=== PATIENT | female | born 1965 | race Caucasian/White ===

== ENCOUNTER 2016-10-06 20:44 | Emergency (ER) | payer SELFPAY ==
[~2016-10-06] VITALS: Ht 160 cm; Wt 81.6 kg
[2016-10-06 20:53] VITALS: BP 115/60
[2016-10-06] MEDS ORDERED: NAPROXEN 500 MG TABLET PO STA (22:08)
[2016-10-06] MEDS ORDERED: CYCLOBENZAPRINE 10 MG TABLET. PO ONE (22:15)
[2016-10-06] MEDS ORDERED: HYDROCODONE/APAP 5/325MG TABLET. PO ONE (22:15)
[2016-10-06] MEDS ORDERED: CYCL10TA2 PO (22:51)
[2016-10-06] MEDS ORDERED: NAPR500T8 PO (22:51)
[2016-10-06] MEDS ORDERED: HYDR-971 PO (22:51)
--- NOTE | 2016-10-06 22:51 | PHYS DOC ---
Adult General Chief Complaint Chief Complaint: MECHANICAL FALL HPI HPI Patient is a 51 year old female who presents with mild left sided pain that began after she fell today. Patient denies any loss of consciousness. She states the pain is worse on the left lateral low back and hip. Patient also states she does not need radiology studies. Denies any numbness or tingling to bilateral lower extremities or loss of bowel bladder function. Review of Systems Review of Systems Constitutional: Denies fever or chills [] Eyes: Denies change in visual acuity, redness, or eye pain [] HENT: Denies nasal congestion or sore throat [] Respiratory: Denies cough or shortness of breath [] Cardiovascular: No additional information not addressed in HPI [] GI: Denies abdominal pain, nausea, vomiting, bloody stools or diarrhea [] : Denies dysuria or hematuria [] Musculoskeletal: Left sided pain worse on the left low back and the left lateral hip. Integument: Denies rash or skin lesions [] Neurologic: Denies headache, focal weakness or sensory changes [] Endocrine: Denies polyuria or polydipsia [] Current Medications Current Medications Current Medications Medications (Trade) Dose Ordered Sig/Tom Start Time Stop Time Status Last Admin Dose Admin Acetaminophen/ Hydrocodone Bitart (Lortab 5/325) 2 tab 1X ONCE 10/06/16 22:15 10/06/16 22:16 UNV 10/06/16 22:16 2 TAB Cyclobenzaprine HCl (Flexeril) 10 mg 1X ONCE 10/06/16 22:15 10/06/16 22:16 UNV 10/06/16 22:16 10 MG Naproxen (Naprosyn) 500 mg 1X STAT 10/06/16 22:08 10/06/16 22:09 UNV 10/06/16 22:15 500 MG Physical Exam Physical Exam Constitutional: Well developed, well nourished, no acute distress, non-toxic appearance. [] HENT: Normocephalic, atraumatic, bilateral external ears normal, oropharynx moist, no oral exudates, nose normal. [] Eyes: PERRLA, EOMI, conjunctiva normal, no discharge. [] Neck: Normal range of motion, no tenderness, supple, no stridor. [] Cardiovascular:Heart rate regular rhythm, no murmur [] Lungs & Thorax: Bilateral breath sounds clear to auscultation [] Abdomen: Bowel sounds normal, soft, no tenderness, no masses, no pulsatile masses. [] Skin: Warm, dry, no erythema, no rash. [] Back: No bruising noted on the lumbar spine. Diffuse tenderness paraspinal muscles of the left lumbar region, no midline tenderness, no CVA tenderness. [] Extremities: Left hip with diffuse tenderness on the lateral aspect, full range of motion to the left lower extremity. Adequate flexion and extension of the left lower extremity. +2 left pedal pulse. Cap refill less than 2 seconds the left lower extremity. Sensation intact to the left lower extremity. Neurologic: Alert and oriented X 3, normal motor function, normal sensory function, no focal deficits noted. [] Psychologic: Affect normal, judgement normal, mood normal. [] Current Patient Data Vital Signs Vital Signs Date Time Temp Pulse Resp B/P Pulse Ox O2 Delivery O2 Flow Rate FiO2 10/06/16 22:16 98 Room Air EKG EKG [] Radiology/Procedures Radiology/Procedures [] Course & Med Decision Making Course & Med Decision Making Pertinent Labs and Imaging studies reviewed. (See chart for details) Patient is in the ED with left sided pain especially the left low back and left hip after falling on it today. She herself declined radiology studies. Discharge with instructions to apply heat or ice to the affected regions. Follow -up with her own doctor next week. Provided return precautions and discharged in stable condition. Dragon Disclaimer Dragon Disclaimer This electronic medical record was generated, in whole or in part, using a voice recognition dictation system. Departure Departure Impression: Primary Impression: Fall from standing Additional Impressions: Lumbar contusion Contusion of hip, left Disposition: 01 HOME, SELF-CARE Condition: STABLE Referrals: JEAN GUTIERREZ MD (PCP) Follow-up with your own doctor in one week Patient Instructions: Contusions-SportsMed Additional Instructions: You were seen for contusion after falling. Apply ice or heat to the affected areas. Take the prescribed medicines as needed. Follow-up with your own doctor next week if symptoms continue. Come back to the emergency room for any concerning symptoms. Scripts Hydrocodone/Apap 5-325 ([place] 5-325 Tablet)1 Each Tablet1-2 Tab PO Q4-6HRS #10 TAB Prov:MYAACOLTEN [employer] 10/06/16 Cyclobenzaprine Hcl 10 Mg Tablet1 Tab PO TID #30 TAB Prov:ISABELLABETHANYCOLTEN Kay JOLENE 10/06/16 Naproxen 500 Mg Tablet.dr1 Tab PO BID #60 TAB Prov:COLTEN MAHMOOD APRN 10/06/16 Problem Qualifiers Primary Impression: Fall from standing Encounter type: initial encounter Qualified Code: W19.XXXA - Unspecified fall, initial encounter Additional Impressions: Lumbar contusion Encounter type: initial encounter Qualified Code: S30.0XXA - Contusion of lower back and pelvis, initial encounter COLTEN MAHMOOD APRN Oct 06, 2016 22:51
[2016-10-06] MEDS ORDERED: NAPROXEN 500 MG TABLET PO ONE (23:09)
== END 2016-10-06 22:57 | disposition home or self-care (01) ==
LOC: ER 20:44
DX: S30.0XXA Contusion of lower back and pelvis, initial encounter (principal); S70.02XA Contusion of left hip, initial encounter; W19.XXXA Unspecified fall, initial encounter; Y93.89 Activity, other specified; Y92.89 Other specified places as the place of occurrence of the external cause; Y99.8 Other external cause status
CPT/HCPCS: 99284